=== PATIENT | male | born 2005 | race Caucasian/White ===

== ENCOUNTER 2024-04-03 08:21 | Outpatient (OUT) | payer OTHER, SELFPAY ==
--- NOTE | 2024-04-03 | XR_ITS ---
The [address] [address] Patient Name: CEASAR CESPEDES MRN: [id number] date: 2005 Sex: M Assigned Patient Location: Current Patient Location: Accession/Order Number: [id number] Exam Date: 04/03/2024 08:55 Report Date: 04/05/2024 07:34 At the request of: ALIZA GONZALEZ Procedure: XR knee RT 4V PROCEDURE: XR knee RT 4V COMPARISON: None. HISTORY: RIGHT KNEE PAIN FINDINGS: BONES:No fracture, acute abnormality, or significant arthropathy. SOFT TISSUES:Negative. No visible soft tissue swelling. EFFUSION:None visible. OTHER: Negative. XR/XR knee RT 4V IMPRESSION: No acute radiographic abnormality Electronically authenticated by: ASHLEE CRAWLEY Date: 04/05/2024 07:34
== END 2024-04-03 08:22 | disposition home or self-care (01) ==
PROVIDERS: Visit Provider Orthopaedic Surgery
DX: M25.561 Pain in right knee (principal)
CPT/HCPCS: 73564